=== PATIENT | male | born 1930 ===

== ENCOUNTER 2019-09-08 13:54 | Inpatient (IN) | payer OTHER, MEDICARE ==
[~2019-09-08] VITALS: Ht 167.6 cm; Wt 71.8 kg
[~2019-09-08 13:54] MED LIST: ALBU3IS INH; ASPI325EC PO; ATOR40TA PO; BENZ100A PO; CLARITIN10 M1 PO; Cough Syru100 MG/5 M PO; Flomax0.4 MG PO; GABA300 PO; GLUCOSAMINE1000 MG PO; LISI5 PO; NAPR500 PO; OMEPRAZOLE20 MG PO; Ventolin/Prove6.7 GM INH
[2019-09-08 14:27] LABS: BASOPHILS ABSOLUTE AUTO 0.01 K/mm3 (0.00-0.23); BASOPHILS PERCENT AUTO 0 % (0-2); EOSINOPHILS ABSOLUTE AUTO 0.11 K/mm3 (0.00-0.68); EOSINOPHILS PERCENT AUTO 2 % (0-6); Hematocrit 39.3 % (37.0-53.0); Hemoglobin 14.3 g/dL (13.5-17.5); IMMATURE GRAN ABSOLUTE AUTO 0.01 K/mm3 (0.00-0.10); IMMATURE GRAN PERCENT AUTO 0 % (0-1); LYMPHOCYTES ABSOLUTE AUTO 1.75 K/mm3 (0.84-5.20); LYMPHOCYTES PERCENT AUTO 29 % (21-46); MONOCYTES ABSOLUTE AUTO 0.43 K/mm3 (0.16-1.47); MONOCYTES PERCENT AUTO 7 % (4-13); Mean Corpuscular HGB 29.1 pg (26.0-34.0); Mean Corpuscular HGB Conc 36.4 g/dL (31.5-36.5); Mean Corpuscular Volume 80 fL (80-100); Mean Platelet Volume 8.9 fL (9.1-12.4); NEUTROPHILS ABSOLUTE AUTO 3.66 K/mm3 (1.96-9.15); NEUTROPHILS PERCENT AUTO 61 % (41-73); Platelet Count 225 K/mm3 (150-400); RDW Coefficient Variation 12.7 % (11.7-14.2); RDW Standard Deviation 36.4 fL (35.1-46.3); Red Blood Cell Count 4.92 M/mm3 (4.30-5.90); White Blood Cell Count 5.97 K/mm3 (4.00-11.30)
[2019-09-08 15:01] LABS: Alanine Aminotransfer (ALT/SGP 23 U/L (12-78); Albumin, Blood 3.7 g/dL (3.4-5.0); Albumin/Globulin Ratio 1.3 (0.8-1.8); Alk Phos 74 U/L (50-136); Anion Gap 7 mmol/L (6-16); Aspartate Aminotrans (AST/SGOT 17 U/L (12-37); Bilirubin, Total 1.1 mg/dL (0.1-1.0); Blood Urea Nitrogen 15 mg/dL (8-24); Bun/Creatinine Ratio 16.6 (12.0-20.0); CO2, Blood 25 mmol/L (21-32); Calcium, Blood 8.8 mg/dL (8.5-10.1); Chloride, Blood 106 mmol/L (98-108); Globulin, Blood 2.9 g/dL (2.2-4.0); Glomerular Filtration Rate >60 (60-); Glucose, Blood 87 mg/dL (70-99); Potassium, Blood 3.8 mmol/L (3.5-5.5); Sodium, Blood 138 mmol/L (136-145); Total Protein, Blood 6.6 g/dL (6.4-8.2); Troponin I 0.452 ng/mL (0.000-0.040)
[2019-09-08] MEDS ORDERED: AMLO5 PO (17:34)
--- NOTE | 2019-09-08 19:00 | NUR ---
PATIENT ARRIVED TO ICU ROOM 15 VIA STRETCHER AFTER RECEIVING REPORT FROM BELL BLEVINS, ER, PATIENT ABLE TO AMBULATE FROM STRETCHER TO BED, PLACED ON MONITOR, DENIES PAIN, AFEBRILE, VSS, PATIENT ORIENTED TO ROOM AND NEW ENVIRONMENT, CALL LIGHT GIVEN AND EXPLAINED, PATIENT VERBALIZED UNDERSTANDING, ALERT AND ORIENTED, REPORT GIVEN TO CORNELIUS MENENDEZ RN, AND FLORENCIO FIELDS RN, ONCOMING STORAGE BRINE WORKER.
--- NOTE | 2019-09-08 19:41 | NUR ---
REPORT RECEIVED FROM BELL CENTENO. ADMITTED FOR PAIN BETWEEN SHOULDERS AND ELEVATED TROPONIN. BP STABLE IN THE 140S HR IN THE 60S. SP02 >90% ON RA. LUNG SOUNDS CLEAR. BT X 4. PT ABLE TO VOID INTO URINAL. PT UP INBED TALKING ON PHONE. HAS NO CURRENT COMPLAINTS. ADMISSION HISTORY OBTAINED HOWEVER PT WAS UNSURE OF HOME MEDS, DOSAGES, OR LAST TIME TAKEN. PT ALSO DENIES MUCH MEDICAL HX EXCEPT FOR PROSTATE ISSUES AND ANKLE SURGERY 20 YRS AGO. PT IS [facility].
--- NOTE | 2019-09-09 06:24 | NUR ---
NO ACUTE CHANGES THIS SHIFT. PT A&OX4 HOWEVER IS FORGETFUL AT TIMES. PT IS IN NSR, SBP AND HR STABLE. LUNG SOUNDS CLEAR, SPO2 >90% ON RA. PT ABLE TO VOID INTO URINAL. 20G IN RFA-SL. TROPONINS TRENDING DOWN. PT TO HAVE MYOCARDIAL PERF SCAN IN AM. CALL LIGHT WITHIN IN REACH. BED IN LOWEST POSITION.
--- NOTE | 2019-09-09 07:40 | NUR ---
DR LAKE CONSULT DR LAKE NOTIFIED OF CONSULT AT 0740. NO ORDERS AT THIS TIME.
--- NOTE | 2019-09-09 08:21 | NUR ---
SAIGE NM TECH TO BE AT BEDSIDE 0830 FOR INJECTION THEN SCAN TO FOLLOW AT 0930. PER NM TECH PT TO REMAIN NPO EXCEPT ICE CHIPS AND WATER. FOLLOWING [facility] CENTER RN WILL BE AT BEDSIDE 1030 FOR INJECTION AND IMAGES TO FOLLOW AT 1130. PER NM TECH PT OKAY TO EAT FOLLOWING THIS TEST. DR KESSLER AWARE OF THIS PLAN AND WILL RETURN TO TALK WITH PT AFTER.
--- NOTE | 2019-09-09 09:20 | NUR ---
LEFT UNIT PT TO SC STUDY VIA WHEELCHAIR, ESCORTED BY SC TECH.
--- NOTE | 2019-09-09 10:01 | NUR ---
RETURN TO UNIT PT BACK TO ROOM. REATTACHED TO PREPRESS TECHNICIAN. PT REQUESTING TO USE RESTROOM, URINAL PROVIDED. NO FURTHER NEEDS AT THIS TIME. CALL LIGHT IN REACH. WILL CONT TO MONITOR PT.
--- NOTE | 2019-09-09 10:30 | NUR ---
SECOND PART SAIGE JESSICA AND AASHISH, HEART CENTER RN AT BEDSIDE TO ADMINISTER INJECTION FOR THE SECOND PORTION OF STRESS TEST.
--- NOTE | 2019-09-09 10:47 | NUR ---
OKAY TO EAT PER [employer] PT OKAY TO EAT AT THIS TIME. [employer] TO RETURN FOR IMAGES AT 1130.
--- NOTE | 2019-09-09 11:06 | NUR ---
SOB EPISODE PT C/O EXTREME SOB AND DYSPNEA, STATES "I CAN'T BREATHE, MY LUNGS HURT". O2 AT 2LPM VIA NC PUT ON PT. SPO2 READING 100%. PT VERY ANXIOUS. CALL TO DR LAKE. PER DR LAKE THIS RESPONSE IS TO BE EXPECTED GIVEN PT'S COPD THE MEDICATION HE WAS JUST INJECTED WITH FOR THE SECOND PART OF STRESS TEST CAUSES THE LUNGS TO SPASM, NO CHANGE TO PLAN OF CARE AT THIS TIME. PT REPORTING THAT HIS DYSPNEA IS RESOLVING ALTHOUGH HE REMAINS ANXIOUS. AASHISH, HEART CENTER RN REASSURED PT WELL AND ENCOURAGED PT TO EAT. O2 TURNED OFF AND PT SPO2 REMAINS AT 99-100% ON RA. NM TECH TO RETURN FOR PT AT 1130. WILL CONT TO MONITOR PT.
--- NOTE | 2019-09-09 11:20 | NUR ---
FAMILY UPDATE CALL FROM DAUGHTERADELSO, REQUESTING UPDATE. UPDATE PROVIDED.
--- NOTE | 2019-09-09 12:04 | NUR ---
OFF UNIT PT OFF UNIT AT THIS TIME FOR IMAGES TO BE TAKEN TO COMPLETE SECOND PORTION OF STRESS TEST. TELEMETRY IN PLACE. PT ESCORTED BY Crew VIA WHEELCHAIR.
--- NOTE | 2019-09-09 12:23 | NUR ---
RETURN TO UNIT PT BACK TO UNIT. PT REATTACHED TO NET LEAD ARCHITECT AND WITH FRESH WATER AT BEDSIDE. CALL LIGHT IN REACH. NO NEEDS AT THIS TIME. WILL CONT TO MONITOR PT.
--- NOTE | 2019-09-09 15:18 | NUR ---
CALL TO DR LAKE CALL TO DR LAKE REGARDING POSITIVE STRESS TEST AND BUMPED TROPONIN TO [phone]. PER DR LAKE PT TO REMAIN NPO AFTER MIDNIGHT IN PREPARATION FOR CATH TOMORROW. NO FURTHER ORDERS AT THIS TIME.
--- NOTE | 2019-09-09 15:38 | NUR ---
DR LAKE ROUNDS DR LAKE AT BEDSIDE, UPDATING PT ON PLAN OF CARE. CONSENT FOR ANGIOGRAM OBTAINED, IN CHART. ORDER PLACED FOR PT TO BE NPO AT MIDNIGHT.
--- NOTE | 2019-09-09 23:48 | NUR ---
ASSUMED CARE OF PT. PT ALERT AND ORIENTED SITTING UP IN BED. PT OCCASIONALLY CONFUSED TO WHY HE IS IN THE HOSPITAL AND BELIEVE HE IS HERE FOR "BRONCHITIS" BUT IS EASILY REORIENTED. PT DENIES CHEST PAIN AND SHORTNESS OF BREATH AT THIS TIME AND STATES UNDERSTANDING REGARDING PLAN OF CARE. PT SBA, ABLE TO AMBULATE TO USE TOILET INDEPENDENTLY. SEE FULL SHIFT ASSESSMENT.
--- NOTE | 2019-09-10 06:19 | NUR ---
SHIFT SUMMARY NO ACUTE CHANGES OVERNIGHT. PT CONTINUES TO DENY CHEST PAIN/SOB. PT ABLE TO AMBULATE T/O ROOM WITH STANDBY ASSIST. PT NSR WITH OCCASIONAL BOUTS OF BRADYCARDIA WITH HR 59 AND OCCASIONAL PAC'S. VSS. WILL REPORT TO DAYSHIFT NURSE.
--- NOTE | 2019-09-10 07:35 | NUR ---
ASSUMED CARE PT. ALERT AND ORIENTED THIS AM. ABLE TO REPOSITION SELF IN BED. PT DENIES PAIN AT THIS TIME. PT. CURRENTLY ON RA. SALINE LOCKED. PLANS FOR ANGIO TODAY, NPO SINCE MIDNIGHT. VSS. CALL LIGHT IN REACH.
--- NOTE | 2019-09-10 09:14 | NUR ---
PT TO ECONOMIC DEVELOPMENT COORDINATOR AT THIS TIME.
--- NOTE | 2019-09-10 10:51 | NUR ---
PT ARRIVES BACK FROM [facility] [facility] PT ALERT AND ORIENTED, DENIES CHEST PAIN AT THIS TIME. PT HAS TR BAND TO RIGHT RADIAL, NO HEMATOMA NO BLEEDING. ARM BOARD IN PLACE, PT GIVEN INSTRUCTIONS TO NOT USE RIGHT WRIST. PLANS FOR HEPARIN GTT TO START AFTER TR BAND REMOVAL. PLANS FOR PT TO HAVE CABG PROCEDURE, DR. HARE RANDY FOR COBRA TRANSFER. PT FAMILY NOTIFIED PER REQUEST. VSS.
--- NOTE | 2019-09-10 12:36 | NUR ---
BED BATH COMPLETE. TR BAND REMAINS STABLE, WITH 9CC OF AIR IN BAND. ROOM ASSIGNMENT GIVEN FOR BUSTER PT WILL BE TRANSFERRED TO ROOM [id number] FAMILY WILL BE NOTIFIED.
--- NOTE | 2019-09-10 13:13 | NUR ---
CALL TO [facility] FOR TRANSFER. REPORT CALLED TO JULIA LUU. [place] [facility] [place]
--- NOTE | 2019-09-10 13:51 | NUR ---
PT TRANSFERRED TO [facility] AT THIS TIME VIA [facility]. VSS UPON TRANSFER. TR BAND REMAINED INFLATED FOR TRANSFER, [facility] RN AWARE. ALL BELONGINGS TAKEN TO [facility].
== END 2019-09-10 13:50 | disposition short-term general hospital (02) | DRG 282 ==
LOC: ER 13:54 → ICUW 13:55
PROVIDERS: Physician Assistant; ADMIT Internal Medicine
PROC: B2111ZZ Fluoroscopy of Multiple Coronary Arteries using Low Osmolar Contrast (ICD-10-PCS; principal; 2019-09-10)
DX: I21.4 Non-ST elevation (NSTEMI) myocardial infarction (principal); N40.0 Benign prostatic hyperplasia without lower urinary tract symptoms; K21.9 Gastro-esophageal reflux disease without esophagitis; E78.5 Hyperlipidemia, unspecified; I10 Essential (primary) hypertension; H90.5 Unspecified sensorineural hearing loss; K76.0 Fatty (change of) liver, not elsewhere classified; Z79.82 Long term (current) use of aspirin; J44.9 Chronic obstructive pulmonary disease, unspecified; I25.10 Atherosclerotic heart disease of native coronary artery without angina pectoris
CPT/HCPCS: 36415; 71046; 78452; 80053; 83690; 83880; 84484; 85025; 90686; 93005; 93010; 93017; 93454; 96372; 99152; 99285-25; A9500; C1769; C1894; G0008; G0378; J0706; J1644; J1650; J2250; J2785; J3010; J7030; Q9967

== ENCOUNTER 2021-02-07 19:17 | Emergency (ER) | payer OTHER, MEDICARE ==
[~2021-02-07] VITALS: Ht 167.6 cm; Wt 63.5 kg
[~2021-02-07 19:17] MED LIST changes: +AMLO5 PO
[2021-02-07] MEDS ORDERED: MIRALAX17 GM (20:11)
[2021-02-07] MEDS ORDERED: TRAZ50 PO (20:11)
[2021-02-07] MEDS ORDERED: ATOR40TA PO (20:13)
[2021-02-07] MEDS ORDERED: ACET325 PO (20:13)
[2021-02-07] MEDS ORDERED: NITR.4SL SL (20:14)
[2021-02-07 20:19] LABS: BASOPHILS ABSOLUTE AUTO 0.01 K/mm3 (0.00-0.23); BASOPHILS PERCENT AUTO 0 % (0-2); EOSINOPHILS ABSOLUTE AUTO 0.07 K/mm3 (0.00-0.68); EOSINOPHILS PERCENT AUTO 1 % (0-6); Hematocrit 32.4 % (37.0-53.0); Hemoglobin 11.5 g/dL (13.5-17.5); IMMATURE GRAN ABSOLUTE AUTO 0.01 K/mm3 (0.00-0.10); IMMATURE GRAN PERCENT AUTO 0 % (0-1); LYMPHOCYTES ABSOLUTE AUTO 1.43 K/mm3 (0.84-5.20); LYMPHOCYTES PERCENT AUTO 28 % (21-46); MONOCYTES ABSOLUTE AUTO 0.41 K/mm3 (0.16-1.47); MONOCYTES PERCENT AUTO 8 % (4-13); Mean Corpuscular HGB 29.4 pg (26.0-34.0); Mean Corpuscular HGB Conc 35.5 g/dL (31.5-36.5); Mean Corpuscular Volume 83 fL (80-100); Mean Platelet Volume 8.9 fL (9.1-12.4); NEUTROPHILS ABSOLUTE AUTO 3.22 K/mm3 (1.96-9.15); NEUTROPHILS PERCENT AUTO 62 % (41-73); Platelet Count 237 K/mm3 (150-400); RDW Coefficient Variation 13.9 % (11.7-14.2); RDW Standard Deviation 41.7 fL (35.1-46.3); Red Blood Cell Count 3.91 M/mm3 (4.30-5.90); White Blood Cell Count 5.15 K/mm3 (4.00-11.30)
[2021-02-07 20:39] LABS: Alanine Aminotransfer (ALT/SGP 32 U/L (12-78); Albumin, Blood 3.5 g/dL (3.4-5.0); Albumin/Globulin Ratio 1.2 (0.8-1.8); Alk Phos 447 U/L (50-136); Anion Gap 5 mmol/L (6-16); Aspartate Aminotrans (AST/SGOT 29 U/L (12-37); Bilirubin, Total 0.6 mg/dL (0.1-1.0); Blood Urea Nitrogen 18 mg/dL (8-24); Bun/Creatinine Ratio 19.8 (12.0-20.0); CO2, Blood 25 mmol/L (21-32); Calcium, Blood 8.2 mg/dL (8.5-10.1); Chloride, Blood 103 mmol/L (98-108); Creatinine, Blood 0.91 mg/dL (0.60-1.20); Globulin, Blood 2.8 g/dL (2.2-4.0); Glomerular Filtration Rate >60 (60-); Glucose, Blood 108 mg/dL (70-99); Potassium, Blood 3.8 mmol/L (3.5-5.5); Sodium, Blood 133 mmol/L (136-145); Total Protein, Blood 6.3 g/dL (6.4-8.2); Troponin I <0.015 ng/mL (0.000-0.040)
[2021-04-04] MEDS ORDERED: ONDA4ODT SL (17:17)
== END 2021-02-07 22:38 | disposition home or self-care (01) ==
LOC: ER 19:17
PROVIDERS: Emergency Medicine
DX: S00.31XA Abrasion of nose, initial encounter (principal); E78.5 Hyperlipidemia, unspecified; I10 Essential (primary) hypertension; K21.9 Gastro-esophageal reflux disease without esophagitis; Z88.1 Allergy status to other antibiotic agents; Z79.82 Long term (current) use of aspirin; Z79.899 Other long term (current) drug therapy; W01.198A Fall on same level from slipping, tripping and stumbling with subsequent striking against other object, initial encounter; Y92.009 Unspecified place in unspecified non-institutional (private) residence as the place of occurrence of the external cause
CPT/HCPCS: 36415; 70450; 72125; 80053; 83880; 84484; 85025; 93005; 93010; 99284-25